=== PATIENT | female | born 1995 | race Caucasian/White ===

== ENCOUNTER 2019-12-23 11:51 | Emergency (ER) | payer OTHER ==
[~2019-12-23] VITALS: Ht 160 cm; Wt 74.8 kg
[2019-12-23 11:57] VITALS: BP 124/74
--- NOTE | 2019-12-23 12:00 | NUR ---
Pt taken to bed 4.
--- NOTE | 2019-12-23 12:06 | NUR ---
24 YO FEMALE CO RIGHT FINGER PAIN FOR 1.5 WEEKS. PAIN 5/10, BUT MORE IF THE FINGER IS MOVED. SWELLING AND REDNESS RIGHT BELOW THE FINGERNAIL. NO DISCHARGE OR BLEEDING. PT IS TAKING AUGMENTIN BUT FOR A DIFFERENT ISSUE ON HER HAND. NO PMH.
--- NOTE | 2019-12-23 12:08 | NUR ---
ERMD AT BEDSIDE
[2019-12-23] MEDS ORDERED: LIDOCAINE MPF 1% 10 MG/ML VIAL INJ ONE (12:10)
[2019-12-23 12:51] VITALS: BP 120/71
== END 2019-12-23 12:51 | disposition home or self-care (01) ==
LOC: MED 11:51
DX: L03.011 Cellulitis of right finger (principal)
CPT/HCPCS: 10060; 99283; J2001